=== PATIENT | male | born 1950 | race Hispanic/Latino ===

== ENCOUNTER 2019-08-21 18:13 | Inpatient (IN) | payer OTHER, MEDICARE ==
[~2019-08-21] VITALS: Ht 167.6 cm; Wt 108.0 kg
[~2019-08-21 18:13] MED LIST: CEFTIN PO; LEVAQUIN500 MG PO; LOSARTAN POTASS25 MG PO; MUCINEX DM ER1 EACH PO; NIFEDIPINE ER30 M1 PO; PROAIR HFA INH8.5 GM INH; WAL-ZYR D TABL1 EACH PO; ZITHROMAX500 MG PO
--- OUTSIDE RECORDS SUMMARY | 2019-08-21 18:15 | XMS REPORT ---
[facility] Address Unknown Phone Unavailable Care Team Providers Care Floral Clerk Name Role Phone RANDY GOODRICH Unavailable Unavailable Problems This patient has no known problems. Allergies, Adverse Reactions, Alerts This patient has no known allergies or adverse reactions. Medications This patient has no known medications. Results Test Description Test Time Test Comments Text Results Atomic Results Result Comments CHEST SINGLE (PORTABLE) [place] [address] Patient Name: CHARLES TONEY MR #: [id number] : 1950 Age/Sex: 67/M Req #: [id number] Adm Physician: RANDY GOODRICH MD Ordered by: RAUL LANGFORD MD Report #: [id number] Location: MED/SURG2 Room/Bed: [facility] Procedure: [id number] DX/CHEST SINGLE (PORTABLE) Exam Date: Exam Time: REPORT STATUS: Signed EXAM: CHEST SINGLE (PORTABLE), AP 1 view DATE: 11/06/2017 5:00 AM Time stamp on exam: 0552 hours INDICATION: Cough, congestion, fever COMPARISON: AP view of the chest November 05, 2017 FINDINGS: LINES/TUBES: None LUNGS: Consolidation medial aspect of the right lung base. Left lower lobe atelectasis versus consolidation. PLEURA: No effusions or pneumothorax. HEART AND MEDIASTINUM: Normal size and contour. BONES AND SOFT TISSUES: No acute findings. IMPRESSION: Stable findings of right lower lobe pneumonia. Signed by: Dr. Beverly Scott M.D. on 11/06/2017 6:42 AM Dictated By: BEVERLY SCOTT MD 1 Transcribed By: BERHANE on 11/06/17641 COPY TO: RAUL LANGFORD MD CHEST SINGLE (PORTABLE) [place] [address] Patient Name: CHARLES TONEY MR #: [id number] : 1950 Age/Sex: 67/M Req #: [id number] Adm Physician: Ordered by: JESSICA CARDOZA LADLE MECHANIC Report #: [id number] Location: ER Room/Bed: Procedure: [id number] DX/CHEST SINGLE (PORTABLE) Exam Date: 11/05/17 Exam Time: 2129 REPORT STATUS: Signed EXAM: CHEST SINGLE (PORTABLE), AP 1 view DATE: 11/05/2017 9:01 PM Time stamp on exam: 2127 hours INDICATION: Coughing COMPARISON: None FINDINGS: LINES/TUBES: None LUNGS: Consolidation in the medial aspect of the right lung base. PLEURA: No effusions or pneumothorax. HEART AND MEDIASTINUM: Normal size and contour. BONES AND SOFT TISSUES: No acute findings. IMPRESSION: Findings consistent with right lower lobe/middle lobe pneumonia. A follow-up PA and lateral view of the chest is recommended in 2 months after treatment to ensure resolution of findings. Signed by: Dr. Beverly Scott M.D. on 11/05/2017 9:56 PM Dictated By: BEVERLY SCOTT MD 55 Transcribed By: BERHANE on 11/05/17 [id number] COPY TO: JESSICA CARDOZA LADLE MECHANIC
[2019-08-21] MEDS ORDERED: OMEPRAZOLE40 MG PO (18:52)
[2019-08-21] MEDS ORDERED: METOLAZONE5 MG PO (18:52)
[2019-08-21] MEDS ORDERED: LISINOPRIL2.5 MG PO (18:52)
[2019-08-21] MEDS ORDERED: LASIX20 MG PO (18:52)
[2019-08-21] MEDS ORDERED: TETRACYCLINE H500 MG PO (18:52)
[2019-08-21] MEDS ORDERED: FLAGYL250 MG PO (18:52)
--- NOTE | 2019-08-21 18:53 | NUR ---
GIVEN SPECIMEN CUP BUT INSIST HE CANNOT VOID AT ALL.
--- NOTE | 2019-08-21 18:53 | NUR ---
SEE IN TRIAGE BY
[2019-08-21 18:55] LABS: BASOPHILS # (AUTO) 0.1 (0.0-0.1); BASOPHILS % 1.2 % (0.0-1.0); EOSINOPHILS # (AUTO) 0.2 (0.0-0.4); EOSINOPHILS % 2.9 % (0.0-6.0); HEMATOCRIT 29.2 % (38.2-49.6); HEMOGLOBIN 10.1 g/dL (14.0-18.0); LYMPHOCYTES # (AUTO) 0.8 (1.0-3.2); LYMPHOCYTES % 14.3 % (18.0-39.1); MEAN CORPUSCULAR HEMOGLOBIN 33.1 pg (28-32); MEAN CORPUSCULAR HGB CONC 34.6 g/dL (31-35); MEAN CORPUSCULAR VOLUME 95.7 fL (81-99); MONOCYTES # (AUTO) 0.4 (0.2-0.8); MONOCYTES % 6.6 % (4.4-11.3); NEUTROPHILS # (AUTO) 4.4 (2.1-6.9); NEUTROPHILS % 74.7 % (38.7-80.0); PLATELET COUNT 148 x10e3/uL (140-360); RED BLOOD COUNT 3.05 x10e6/uL (4.3-5.7); RED CELL DISTRIBUTION WIDTH 17.5 % (11.7-14.4)
[2019-08-21 19:04] LABS: INR 1.13; PARTIAL THROMBOPLASTIN TIME 37.5 seconds (23.8-35.5)
[2019-08-21 19:14] LABS: ALBUMIN 2.1 g/dL (3.5-5.0); ALBUMIN/GLOBULIN RATIO 0.5 (0.8-2.0); ANION GAP 17.7 mmol/L (8-16); CALCIUM 8.6 mg/dL (8.4-10.2); CREATININE, SERUM 6.65 mg/dL (0.72-1.25); POTASSIUM 4.7 mmol/L (3.5-5.1)
[2019-08-21 19:21] LABS: CREATINE KINASE MB 1.8 ng/mL (0-5.0)
--- NOTE | 2019-08-21 19:30 | NUR ---
16FR GRISSOM CATHETER INSERTED USING STERILE TECHNIQUE PER ORDERS. 50 CC DARK CLOUDY JAZMYNE URINE RETURN NOTED. MD INFORMED.
[2019-08-21] MEDS ORDERED: LIDOCAINE JELLY 2% 10ML URO-JET ONE (19:33)
[2019-08-21] MEDS ORDERED: LIDOCAINE JELLY 2% 10ML URO-JET TOP ONE (19:45)
[2019-08-21 19:56] LABS: CLARITY,URINE SL CLOUDY (CLEAR); COLOR,URINE AMBER (YELLOW); LEUKOCYTE ESTERASE ,URINE TRACE (NEGATIVE)
[2019-08-21 19:57] LABS: BILIRUBIN,URINE SMALL (NEGATIVE); KETONES,URINE NEGATIVE (NEGATIVE); NITRITE,URINE NEGATIVE (NEGATIVE); PROTEIN,URINE DIPSTICK TRACE (NEGATIVE); URINE UROBILINOGEN 0.2 mg/dL (0.2 - 1)
[2019-08-21 20:05] LABS: WBC,URINE (MAN) 0-5 /HPF (0-5)
[2019-08-21 20:06] LABS: AMORPHOUS SEDIMENT,URINE MODERATE (FEW); BACTERIA,URINE FEW /HPF
--- NOTE | 2019-08-21 20:33 | Diagnostic Imaging Report ---
Examination: Single AP view of the chest. COMPARISON: None. INDICATION: abdominal pain DISCUSSION: Lines/tubes: None. Lungs: Low lung volume. No pneumonia. Pleura: No pleural effusion or pneumothorax. Heart and mediastinum: The heart and the mediastinum are unremarkable. Bones and soft tissues: No acute bony abnormalities. IMPRESSION: 1. No acute cardiopulmonary abnormalities. Signed by: Dr. Carlos A Cano M.D. on 08/21/2019 8:29 PM
--- NOTE | 2019-08-21 20:51 | Diagnostic Imaging Report ---
EXAMINATION: CT of the abdomen and pelvis without contrast. TECHNIQUE: Helical CT images of the abdomen and pelvis were performed from the lung bases to the lesser trochanters. No intravenous contrast was given per renal stone protocol. Coronal and sagittal reformatted images were obtained. COMPARISON: None. CLINICAL HISTORY:abdominal pain DISCUSSION: ABSENCE OF INTRAVENOUS CONTRAST DECREASES SENSITIVITY FOR DETECTION OF FOCAL LESIONS AND VASCULAR PATHOLOGY. ABDOMEN/PELVIS: LOWER THORAX: Unremarkable. HEPATOBILIARY:Enlargement of the left hepatic lobe and caudate with nodular contour. SPLEEN: No splenomegaly. PANCREAS: No focal masses or ductal dilatation. ADRENALS: No adrenal nodules. KIDNEYS/URETERS: No hydronephrosis. Left renal calculi, largest 1 cm PELVIC ORGANS/BLADDER: Bruce catheter within the prostate. PERITONEUM/RETROPERITONEUM: Large volume ascites LYMPH NODES: No intra-abdominal,retroperitoneal, pelvic or inguinal lymphadenopathy. VESSELS: Unremarkable. GI TRACT: Scattered colonic diverticulosis. No inflammatory change. BONES AND SOFT TISSUES: Multilevel degenerative disc disease. IMPRESSION: Cirrhotic liver with large volume ascites Colonic diverticulosis without inflammatory change. Nonobstructing left renal calculi. Signed by: Dr. Carlos A Cano M.D. on 08/21/2019 8:48 PM
[2019-08-21] MEDS ORDERED: SODIUM CHLORIDE FLUSH 10 ML SYR INJ PRN (21:30)
[2019-08-21] MEDS ORDERED: ALBUTEROL/IPRATROPIUM 3 ML NEB NEB PRN (21:45)
[2019-08-21 22:45] VITALS: BP 129/61
--- NOTE | 2019-08-21 22:45 | NUR ---
Patient received to room 293 via stretcher from the er. vss. no c/o pain noted. patient slightly sob on transfer from stretcher to bed. 02/2l/nc placed on patient for comfort. abd lrg, firm with no c/o pain and 3+ bilateral edema x 2 weeks. admit assessment/history complete. bed low, sr up x 3 and call gilbert placed within reach. patient instructed on fluid restriction 1 liter daily. patient verbalizes understanding of this. patient instructed to call for assistance when needed.
[2019-08-22] VITALS (8 sets, daily range): BP systolic 104–132; BP diastolic 52–66
[2019-08-22 06:24] LABS: BASOPHILS % 0.5 % (0.0-1.0); EOSINOPHILS # (AUTO) 0.2 (0.0-0.4); EOSINOPHILS % 3.4 % (0.0-6.0); HEMATOCRIT 27.4 % (38.2-49.6); HEMOGLOBIN 9.4 g/dL (14.0-18.0); LYMPHOCYTES % 18.4 % (18.0-39.1); MEAN CORPUSCULAR HEMOGLOBIN 32.6 pg (28-32); MEAN CORPUSCULAR HGB CONC 34.3 g/dL (31-35); MEAN CORPUSCULAR VOLUME 95.1 fL (81-99); MONOCYTES # (AUTO) 0.4 (0.2-0.8); NEUTROPHILS # (AUTO) 3.9 (2.1-6.9); NEUTROPHILS % 70.2 % (38.7-80.0); PLATELET COUNT 139 x10e3/uL (140-360); RED BLOOD COUNT 2.88 x10e6/uL (4.3-5.7); RED CELL DISTRIBUTION WIDTH 17.8 % (11.7-14.4)
[2019-08-22 06:46] LABS: ALBUMIN 1.9 g/dL (3.5-5.0); ALBUMIN/GLOBULIN RATIO 0.5 (0.8-2.0); ANION GAP 16.4 mmol/L (8-16); CALCIUM 8.3 mg/dL (8.4-10.2); CREATININE, SERUM 6.76 mg/dL (0.72-1.25); POTASSIUM 5.4 mmol/L (3.5-5.1)
--- NOTE | 2019-08-22 07:00 | NUR ---
BEDSIDE SHIFT REPORT RECEIVED FROM THE WEAVING SUPERVISOR RN. EDUCATED PT ABOUT FALL PRECAUTIONS AND FLUID RESTRICTIONS. PT VERBALIZED UNDERSTANDING. PT REFUSED BED ALARM. PT DENIES NEEDS AT THIS TIME.
[2019-08-22] MEDS: ONDANSETRON HCL INJ 2MG/ML 2ML 2 MG/ML VIAL IV PRN (08:03)
--- NOTE | 2019-08-22 10:15 | NUR ---
DR. SILVERIO AT BEDSIDE. NEW ORDER FOR PARACENTESIS TODAY.
--- NOTE | 2019-08-22 11:20 | NUR ---
INFORMED CONSENT SIGNED FOR PARACENTESIS. FAMILY AT BEDSIDE. PT DENIED FURTHER NEEDS.
--- NOTE | 2019-08-22 11:35 | NUR ---
PER RADIOLOGY PT NEEDS TO BE ON NPO FOR 4 HOURS. PT LAST MEAL WAS AT 8AM BREAK FAST. PT IS AWARE OF NPO STATUS.
--- NOTE | 2019-08-22 12:00 | NUR ---
PT OFF UNIT FOR PROCEDURE WITH PECAN GATHERER. FAMILY AT BEDSIDE.
--- NOTE | 2019-08-22 12:55 | NUR ---
PT BACK TO UNIT AFTER PROCEDURE. 7850 ML FLUID REMOVED. PT DENIES NEEDS AT THIS TIME.
--- NOTE | 2019-08-22 13:00 | NUR ---
DR. POOLE AT BEDSIDE.
[2019-08-22] MEDS ORDERED: ALBUMIN 25% 12.5GM 50ML 50 ML IV ONE ×3 (13:13→13:16)
[2019-08-22] MEDS ORDERED: ALBUMIN 25% 25GM 100ML 0.25 GM/ML BTL IV ONE (13:15)
--- NOTE | 2019-08-22 13:23 | Diagnostic Imaging Report ---
EXAM: Ultrasound-guided paracentesis DATE: 08/22/2019 12:00 PM INDICATION: Ascites COMPARISON: None PROCEDURES PERFORMED: Ultrasound guided paracentesis Ultrasound images archived in PACS. Anesthesia: Local, 1% lidocaine Devices: 5-Croatian Yueh centesis needle PROCEDURE REPORT: After informed consent was obtained, ultrasound was utilized to identify the largest pocket of ascitic fluid. A safe entry route in the right lower quadrant was identified and the overlying skin was prepped and draped in usual sterile fashion. Lidocaine1% was used for local anesthesia. Under ultrasound guidance, a 5 Fr centesis needle was advanced into the ascites in the right lower quadrant of the abdomen. A total of 7,850 cc were aspirated without complication. The catheter was removed and a dressing applied to the skin. Order was made for the patient to receive 50 g of albumin IV following the procedure. Complications: None Blood loss: Minimal, less than 1cc Samples: Sent to the laboratory for analysis Patient disposition: Stable IMPRESSION: Uncomplicated ultrasound guided paracentesis with removal of 7,850 cc's of bloody ascites. Signed by: Dr. Wyatt Rodriguez DO on 08/22/2019 1:20 PM
[2019-08-22] MEDS ORDERED: SOD POLYSTYRENE SULFONATE SUSP 15 GM/60 ML BTL PO NR (16:15)
[2019-08-22] MEDS ORDERED: FUROSEMIDE INJ 10 MG/ML 2 ML VIAL IV SCH (17:00)
[2019-08-22] MEDS ORDERED: FUROSEMIDE 20 MG TAB PO SCH (17:00)
[2019-08-22] MEDS ORDERED: MORPHINE SULFATE 2 MG/ML SYR 1ML IV PRN (17:30)
--- NOTE | 2019-08-22 17:40 | Consultation ---
DATE OF CONSULTATION: 08/22/2019 HISTORY OF PRESENT ILLNESS: A 69-year-old, who apparently was presented to the hospital because of "not feeling good." The patient was found to be jaundiced with bilirubin as high as 9.3 on admission. He had the CAT scan, which showed evidence of cirrhosis with large volume ascites along with diverticulosis. He also has acute renal failure with a BUN and creatinine of 8.8 and 6.65. He denies any history of alcohol abuse or hepatitis in the past. PAST MEDICAL HISTORY: His medical problem is unremarkable. ALLERGIES: NONE. SOCIAL HISTORY: No alcohol use. FAMILY HISTORY: Significant for diabetes as well as hepatitis. REVIEW OF SYSTEMS: Denies any chest pain or shortness of breath. Denies any dysphagia or odynophagia. Denies any dysuria, hematuria, or any kind of syncopal episode. PHYSICAL EXAMINATION: GENERAL: Awake, alert, appears to be stable. VITAL SIGNS: Afebrile currently. HEAD, EYES, EARS, NOSE, AND THROAT: Normocephalic, atraumatic. Sclerae are icteric. NECK: Supple. HEART: Regular. ABDOMEN: Soft, distended with ascites that is nontender. EXTREMITIES: No cyanosis. No clubbing. LABORATORY VALUES: As of this morning, BUN of 87, creatinine of 6.76, bilirubin of 8.9, AST of 179, ALT of 65, and the WBC of 5.54, hemoglobin of 9.4, and a platelet count of 139. CAT scan as I mentioned before. IMPRESSION: 1. Cirrhosis with large amount of ascites. It was unclear at this point. 2. Acute renal failure. RECOMMENDATION: We need to get a paracentesis done. Also labs to rule out any kind of further disease that may be affecting the liver. Anil lOivia MD DHD/MODL /[id number] cc: Irene Santiago MD
--- NOTE | 2019-08-22 19:00 | NUR ---
BEDSIDE SHIFT REPORT GIVEN TO THE PROGRAM FACILITATOR RN. PT FAMILY AT BEDSIDE. PT DENIED FURTHER NEEDS.
--- NOTE | 2019-08-22 19:12 | NUR ---
Report received and walking rounds complete. Pt A&O and resting in bed and no apparent distress. All safety measures ensured and pt call gilbert near.
[2019-08-22 21:19] LABS: BODY FLUID APPEARANCE TURBID; BODY FLUID COLOR RED; BODY FLUID TYPE PERITONEAL
[2019-08-22 22:14] LABS: RBC,BODY FLUID 102960 cells/uL; WBC,BODY FLUID 17 cells/uL
[2019-08-22 22:25] LABS: LYMPHOCYTES,BODY FLUID 34 %; MONO/MACROPHG,BODY FLUID 29 %; NEUTROPHILS,BODY FLUID 37 %
--- NOTE | 2019-08-22 23:30 | History and Physical ---
PRIMARY CARE PHYSICIAN: Dr. Román George with [facility]. CHIEF COMPLAINT: Abdominal distention, general weakness and lower extremity edema. HISTORY OF PRESENT ILLNESS: This is a 69-year-old male who with a past medical history of hypertension, asthma, GERD, presented to the ER with complaints of 2-3 weeks of poor appetite, increased distention of his stomach and low urine output. He reports feeling nauseous and poor appetite. He denies any abdominal pain, chest pain, shortness of breath, fever, chills, hematemesis, or dysuria. He reports going to his PCP two weeks ago for a similar problem and at that time, they alisha some blood work and was supposed to follow up in the office next week, but the symptoms have been worsening, so he presented to the ER for further workup. PAST MEDICAL HISTORY: 1. Hypertension. 2. Asthma. 3. GERD. PAST SURGICAL HISTORY: He reports right ear surgery. FAMILY MEDICAL HISTORY: Mother had diabetes and leukemia. Father had a heart attack. SOCIAL HISTORY: He denies any tobacco, alcohol, or illicit drug use. He lives with his . REVIEW OF SYSTEMS: GENERAL: He appears in no distress. HEENT: Jaundice in eye. No head trauma. LUNGS: Clear to auscultation. CARDIOVASCULAR: No chest pain or palpitations. GI: Reports abdominal distention and nausea. NEUROLOGIC: Alert and oriented. MUSCULOSKELETAL: Lower extremity edema, pitting edema. SKIN: Dry and intact. PHYSICAL EXAMINATION: VITAL SIGNS: Temperature 96.3, pulse is 73, respirations 18, blood pressure 108/52, O2 99% on 2 L of O2. LABORATORY DATA: WBC 5.54, hemoglobin 9.4, hematocrit 27.4, platelets are 139. Sodium 132, potassium 4.7, then went up to 5.4, BUN 83, creatinine 6.65, AST 198, ALT 73, troponin negative, and lipase 90. TSH 4.762. CK 51. GENERAL: He appears in no acute distress. HEENT: Conjunctiva is jaundiced. Normocephalic, atraumatic. LUNGS: Clear to auscultation. CARDIOVASCULAR: Regular rate and rhythm. GI: Mild tenderness and distention. Active bowel sounds. NEURO: Alert, awake and oriented x3. MUSCULOSKELETAL: Moves all extremities and 3+ pedal pitting edema noted in the lower extremities. SKIN: Dry and intact. IMAGING: Chest x-ray showed no acute cardiopulmonary abnormalities. Abdominal and pelvic CT showed cirrhotic liver with large volume ascites, colonic diverticulosis without inflammatory changes and nonobstructive left renal stone. IMPRESSION AND PLAN: 1. Cirrhotic liver with large ascites. IR was consulted for a paracentesis. 2. Acute kidney failure, unknown history of kidney disease. Creatinine is 6.76. We will resume Lasix and consult Nephrology for further recommendations. 3. Hyponatremia. Sodium is 132. We will monitor closely, asymptomatic. 4. Hyperkalemia, 5.4. We will repeat K levels. 5. Hypertension, now stable. We will hold off on blood pressure medications for now. 6. Gastroesophageal reflux disease. We will continue Pepcid. 7. Asthma. We will give albuterol as needed and currently does not have respiratory distress. 8. Anemia of chronic disease. Hemoglobin is 9.4. We will monitor for now and consider blood transfusion if hemoglobin is less than 7. 9. Deep venous thrombosis prophylaxis. We will use SCDs for now due to anemia and possible gastrointestinal bleed. Dictated by GIL Mays Irene Santiago MD MY/MODL /[id number] The patient was seen and examined on 08/22/2019, his sister recently from cirrhosis. Agree with the findings and plan as documented by GIL Reina. MTDD
[2019-08-23] VITALS (7 sets, daily range): BP systolic 107–130; BP diastolic 55–69
[2019-08-23 06:38] LABS: BASOPHILS % 0.6 % (0.0-1.0); EOSINOPHILS # (AUTO) 0.1 (0.0-0.4); EOSINOPHILS % 1.6 % (0.0-6.0); HEMATOCRIT 24.7 % (38.2-49.6); HEMOGLOBIN 8.7 g/dL (14.0-18.0); LYMPHOCYTES # (AUTO) 0.5 (1.0-3.2); LYMPHOCYTES % 9.2 % (18.0-39.1); MEAN CORPUSCULAR HEMOGLOBIN 33.5 pg (28-32); MEAN CORPUSCULAR HGB CONC 35.2 g/dL (31-35); MONOCYTES # (AUTO) 0.4 (0.2-0.8); MONOCYTES % 7.3 % (4.4-11.3); NEUTROPHILS # (AUTO) 3.9 (2.1-6.9); NEUTROPHILS % 80.5 % (38.7-80.0); PLATELET COUNT 115 x10e3/uL (140-360); RED CELL DISTRIBUTION WIDTH 17.8 % (11.7-14.4)
[2019-08-23 07:13] LABS: ALBUMIN 2.3 g/dL (3.5-5.0); ALBUMIN/GLOBULIN RATIO 0.7 (0.8-2.0); CALCIUM 8.4 mg/dL (8.4-10.2); CREATININE, SERUM 7.1 mg/dL (0.72-1.25)
--- NOTE | 2019-08-23 07:15 | NUR ---
received am report from nurse and morning rounds done. pt is sleeping, no s/s of distress. call light within reach and side rails are up. family is at the bedside
--- NOTE | 2019-08-23 07:26 | NUR ---
Bedside report and walking rounds complete with day shift RN.
[2019-08-23 08:12] LABS: LYMPHOCYTES % (MANUAL) 9 % (19-48); MONOCYTES % (MANUAL) 6 % (3.4-9.0)
[2019-08-23 08:13] LABS: BAND NEUTROPHILS % (MANUAL) 5 %; EOSINOPHILS % (MANUAL) 1 % (0-7); NEUTROPHILS % (MANUAL) 79 % (40-74)
[2019-08-23 08:14] LABS: PLATELET ESTIMATE SLIGHTLY DECREASED; PLATELET MORPHOLOGY COMMENT NORMAL
--- NOTE | 2019-08-23 18:01 | Progress Note ---
DATE: 08/23/2019 CHIEF COMPLAINT: Abdominal distention, generalized weakness, and bilateral lower extremity edema. SUBJECTIVE: Seen in room with family at bedside, he denies any abdominal pain, shortness of breath, chest pain, fever, chills, nausea, vomiting, or dysuria. Bruce is in place, draining tamar color urine. He reports poor appetite. OBJECTIVE: VITAL SIGNS: Temperature 95.9, pulse is 73, respirations 18, blood pressure 111/55, pulse ox 100% on 2 L of O2 via nasal cannula. GENERAL: No acute distress. HEENT: Normocephalic and atraumatic. Sclerae are jaundiced. NECK: Supple and midline. LUNGS: Clear to auscultation. CARDIOVASCULAR: Regular rate and rhythm. GI: Soft and nontender. Active bowel sounds. Mild distention noted. NEUROLOGIC: Alert, awake, and oriented x3. MUSCULOSKELETAL: Moves all extremities. Pitting edema in bilateral lower extremities noted. SKIN: Dry and intact. LABORATORY DATA: WBC 4.9, RBC 2.60, hemoglobin 8.7, hematocrit 24.7, platelets 115. Sodium 136, potassium 5.0, carbon dioxide 20, BUN 97, creatinine is 7.10, estimated GFR is 8, AST 186, ALT is 61, alkaline phosphatase is 154. Alpha-fetoprotein is pending. INR is 1.13, PT 15. Hepatitis panel still pending. Urine culture negative so far. IMPRESSION: 1. Cirrhosis with large ascites status post paracentesis, removed 7850 mL via a shunt. 2. Acute kidney failure, denies history of chronic kidney disease. Creatinine is up to 7.1, and Nephrology on the case. We will defer fluid management and kidney function to Nephrology. 3. Hypertension, now stable. We will hold off on nephrotoxic medications. 4. Anemia of chronic disease, hemoglobin is 8.4. We will continue to monitor and transfuse as needed. 5. History of gastroesophageal reflux disease. Continue Pepcid. 6. History of asthma, on albuterol as needed. 7. DVT prophylaxis, no chemical anticoagulation due to anemia. PLAN: We will continue current treatment. Repeat labs in a.m. Further recommendation per GI and Nephrology. Dictated by Veronica Reina, GIL Irene Santiago MD MY/MODL /[id number] Seen and examined, updated family at the bedside in details. Agree with the findings and plan as documented by GIL Reina. [facility]
--- NOTE | 2019-08-23 19:36 | NUR ---
PT IS RESTING IN BED. RESPIRATION IS EVEN AND UNLABORED, NO DISTRESS NOTED. BED IN THE LOWEST POSITION, LOCKED, BED ALARM ON, AND CALL LIGHT WITHIN REACH. WILL CONTINUE TO MONITOR.
[2019-08-24] VITALS (8 sets, daily range): BP systolic 112–120; BP diastolic 56–58
[2019-08-24 06:13] LABS: BASOPHILS % 0.8 % (0.0-1.0); EOSINOPHILS # (AUTO) 0.2 (0.0-0.4); EOSINOPHILS % 3.3 % (0.0-6.0); HEMATOCRIT 24.6 % (38.2-49.6); HEMOGLOBIN 8.4 g/dL (14.0-18.0); LYMPHOCYTES # (AUTO) 0.7 (1.0-3.2); LYMPHOCYTES % 13.7 % (18.0-39.1); MEAN CORPUSCULAR HEMOGLOBIN 32.8 pg (28-32); MEAN CORPUSCULAR HGB CONC 34.1 g/dL (31-35); MEAN CORPUSCULAR VOLUME 96.1 fL (81-99); MONOCYTES # (AUTO) 0.3 (0.2-0.8); MONOCYTES % 6.7 % (4.4-11.3); NEUTROPHILS # (AUTO) 3.8 (2.1-6.9); NEUTROPHILS % 75.1 % (38.7-80.0); PLATELET COUNT 105 x10e3/uL (140-360); RED BLOOD COUNT 2.56 x10e6/uL (4.3-5.7); RED CELL DISTRIBUTION WIDTH 17.7 % (11.7-14.4)
[2019-08-24 06:33] LABS: INR 1.28; PROTHROMBIN TIME 16.6 seconds (11.9-14.5)
[2019-08-24 06:42] LABS: ALBUMIN 2.1 g/dL (3.5-5.0); ANION GAP 16.3 mmol/L (8-16); BILIRUBIN,DIRECT 6.9 mg/dL (0.0-0.5); CALCIUM 8.3 mg/dL (8.4-10.2); CREATININE, SERUM 7.36 mg/dL (0.72-1.25); POTASSIUM 4.3 mmol/L (3.5-5.1)
[2019-08-24] MEDS ORDERED: BUMETANIDE 1 MG TAB PO ONE ×2 (14:00→18:00)
[2019-08-24] MEDS ORDERED: ALBUMIN 5% 0.05 GM/ML BTL IV ONE (14:00)
[2019-08-24] MEDS ORDERED: LIDOCAINE HCL 1% LOCAL INJ 20 ML VIAL ONE (14:23)
--- NOTE | 2019-08-24 14:53 | Diagnostic Imaging Report ---
EXAM: Renal Ultrasound INDICATION: ^ruba COMPARISON: None TECHNIQUE: Transverse and longitudinal images of the kidneys and bladder were obtained. FINDINGS: Right Kidney: Length: 11.3 cm Appearance: Normal echogenicity. Collecting system: No hydronephrosis Stones: None Cyst/Mass: None Left Kidney: Length: 11.2 cm Appearance: Normal echogenicity. Collecting system: No hydronephrosis Stones: 6 mm mid pole echogenic focus with posterior acoustic shadowing, consistent with nonobstructive calculus. Cyst/Mass: None Bladder: Decompressed bladder with Bruce in place. IMPRESSION: Left mid pole 6 mm nonobstructive calculus. No hydronephrosis. Decompressed bladder with Bruce in place. Signed by: Dori Barry MD on 08/24/2019 2:50 PM
--- NOTE | 2019-08-24 15:41 | NUR ---
ATTEMPTED TO PREFORM DPA PT NOT IN ROOM, GONE TO PROCEDURE.
--- NOTE | 2019-08-24 16:19 | Diagnostic Imaging Report ---
PROCEDURE: Non-tunneled dialysis catheter placement Procedural Personnel Attending physician(s): Dori Barry MD Fellow physician(s): None Resident physician(s): None Advanced practice provider(s): None Pre-procedure diagnosis: Acute kidney injury Post-procedure diagnosis: Same Indication: Performance of hemodialysis Additional clinical history: None Complications: No immediate complications. IMPRESSION: Insertion of right-sided non-tunneled triple lumen temporary dialysis catheter, with tip in the expected location of the cavoatrial junction. Plan: The catheter may be used immediately. PROCEDURE SUMMARY: - Venous access with ultrasound guidance - Non-tunneled central venous catheter insertion with fluoroscopic guidance - Additional procedure(s): None PROCEDURE DETAILS: Pre-procedure Consent: Informed consent for the procedure including risks, benefits and alternatives was obtained and time-out was performed prior to the procedure. Preparation (MIPS): The site was prepared and draped using all elements of maximal sterile barrier technique including sterile gloves, sterile gown, cap, mask, large sterile sheet, sterile ultrasound probe cover, hand hygiene and cutaneous antisepsis with 2% chlorhexidine. Medical reason for site preparation exception (MIPS): Not applicable Anesthesia/sedation Level of anesthesia/sedation: No sedation Access Local anesthesia was administered. The vessel was sonographically evaluated and determined to be patent. Real time ultrasound was used to visualize needle entry into the vessel and a permanent image was stored. Vein accessed: Internal jugular vein Access technique: 19 gauge access needle Catheter placement The access site was dilated and the catheter was placed into the vein over a wire under fluoroscopic guidance. The catheter tip location was fluoroscopically verified and a permanent image was stored.. A sterile dressing was applied. Catheter placed: Bard trialysis Catheter size (Salvadorean): 13 Catheter length (cm): 15 Catheter flush: Normal saline Catheter securement technique: Non-absorbable suture Contrast Contrast agent: None Radiation Dose Fluoroscopy time (minutes): 0.1 Reference air kerma (mGy): 1.44 Additional Details Additional description of procedure: None Equipment details: None Specimens removed: None Estimated blood loss (mL): Less than 10 Standardized report: [id number] Attestation Signer name: Dori Barry MD I attest that I was present for the entire procedure. I reviewed the stored images and agree with the report as written. Signed by: Dori Barry MD on 08/24/2019 4:16 PM
[2019-08-24] MEDS: FAMOTIDINE 20 MG TAB PO SCH (17:30)
--- NOTE | 2019-08-24 18:10 | Progress Note ---
DATE: 08/24/2019 CHIEF COMPLAINT: Generalized weakness and edema. SUBJECTIVE: Seen post dialysis catheter placement this afternoon. He denies any chest pain, shortness of breath, fever, chills, nausea, or vomiting. OBJECTIVE: VITAL SIGNS: Temperature is 97.4, pulse is 74, blood pressure is 117/57, and pulse ox is 99% on room air. GENERAL: No acute distress. HEENT: Normocephalic and atraumatic. No vision loss. NECK: Supple and midline. LUNGS: Clear to auscultation. CARDIOVASCULAR: Regular rate and rhythm. GI: Soft, distended, and nontender. NEUROLOGICAL: Alert, awake, and oriented x3. MUSCULOSKELETAL: Active ROM. Pitting edema on bilateral lower extremities. TONNY hose in place. SKIN: Grossly intact. No rash noted. PSYCH: Normal affect and mood. LABORATORY DATA: WBC is 5.1, hemoglobin is 8.4, hematocrit is 24.6, and platelet is 105. Sodium is 134, potassium is 4.3, CO2 is 22, BUN is 107, creatinine is 7.36, and estimated GFR is 7. A total bilirubin is 9.3. AST is 191, ALT is 63. INR is 1.28. PT is 16.6. EJ is still pending and hepatitis panel also pending. IMAGING: Renal ultrasound showed left mid pole 6 mm nonobstructive calculus. No hydronephrosis is noted. IMPRESSION AND PLAN: 1. Cirrhosis with a large ascites, status post paracentesis. Abdomen is again getting distended a little more. 2. Acute kidney failure. His last creatinine at his PCPs office within normal limits. Right jugular dialysis catheter was placed. Nephrology has been consulted and plans to initiate dialysis. 3. Hypertension, now stable. We will continue to monitor closely. 4. Anemia of chronic disease. Hemoglobin is 8.3. We will continue to monitor. No signs of bleeding noted. 5. Thrombocytopenia. No signs of bleeding noted. We will continue to monitor, likely due to cirrhosis. 6. History of gastroesophageal reflux disease. Continue Pepcid. 7. History of asthma. We will continue albuterol as needed. 8. Deep venous thrombosis prophylaxis. No chemical anticoagulation due to anemia. PLAN: We will continue current treatment and Nephrology plans on initiating dialysis soon. We will repeat labs in the a.m. Further recommendations to follow. Dictated by GIL Mays MD BELKIS Wilkins/KELLL /[id number] Seen and examined. Agree with the findings and plan as documented by GIL Reina. [facility]
[2019-08-25] VITALS (7 sets, daily range): BP systolic 110–124; BP diastolic 57–65
[2019-08-25 06:08] LABS: ALBUMIN 2.1 g/dL (3.5-5.0); ALBUMIN/GLOBULIN RATIO 0.6 (0.8-2.0); CALCIUM 8.2 mg/dL (8.4-10.2); CREATININE, SERUM 7.65 mg/dL (0.72-1.25)
[2019-08-25 06:41] LABS: CREATININE,URINE RANDOM 72.35 mg/dL (63-166); TOTAL PROTEIN, URINE 44.5 mg/dL (1-14)
[2019-08-25] MEDS: FAMOTIDINE 20 MG TAB PO SCH ×2 (10:57→17:55)
[2019-08-25] MEDS ORDERED: SODIUM CHLORIDE 0.9% 1000ML 2,000 ML ONE (13:45)
[2019-08-25] MEDS ORDERED: SODIUM CHLORIDE 0.9% 1000ML 2,000 ML IV PRN (14:00)
[2019-08-25] MEDS ORDERED: HEPARIN SOD (PORCINE) 1000 UNIT/ML SDV IV PRN (14:00)
[2019-08-25] MEDS ORDERED: ALBUMIN 25% 12.5GM 0.25 GM/ML BTL IV PRN (14:45)
[2019-08-25] MEDS ORDERED: MANNITOL 25% 12.5GM/50 ML VIAL IV PRN (14:45)
--- NOTE | 2019-08-25 16:05 | NUR ---
SPOKE WITH PT ABOUT DIALYSIS CHAIR, HE STATES HE LIVES CLOSEST TO [facility], HE SIGNED CHOICE FILED IN CHART. HE STATES HE PREFERS M, W F MORNING TIME IF AVAILABLE. PT CURRENTLY ON FIRST DIALYSIS, WILL FAX TO ADMISSION IN MORNING WHEN NOTES ARE AVAILABLE.
--- NOTE | 2019-08-25 19:06 | Progress Note ---
DATE: 08/25/2019 CHIEF COMPLAINT: Generalized weakness, bilateral lower extremity edema, and ascites. SUBJECTIVE: Seen in bed while HD is in progress. He denies any fever, chills, nausea, vomiting, chest pain, and shortness of breath. Bruce catheter in place and draining dark brown urine. No further complaint. OBJECTIVE: VITAL SIGNS: Temperature 97, pulse is 68, respirations 20, blood pressure 120/57, and pulse ox 99% on 2 L of oxygen. GENERAL: No acute distress. Conversant. HEENT: Normocephalic and atraumatic. NECK: Supple and midline. LUNGS: With decreased breath sounds. CARDIOVASCULAR: Regular rate and rhythm. No murmurs. GASTROINTESTINAL: Soft and nontender. NEUROLOGICAL: Alert, awake, and oriented x3. MUSCULOSKELETAL: Active ROM with bilateral lower extremity edema. SKIN: Grossly intact. Jaundiced. LABORATORY DATA: Sodium is 132, potassium is 4.0, BUN is 121, and creatinine is 7.65. Estimated GFR is 7. AST is 196 and ALT is 64. Alkaline phosphate is 177. Hepatitis panel was negative. ASSESSMENT AND PLAN: 1. Cirrhosis with large ascites status post paracentesis per IR. Hepatitis panel is negative. 2. Acute kidney failure. Creatinine is 7.65 today. Dialysis catheter has been placed and initiated on dialysis per Nephrology. See on setting outpatient dialysis. 3. Hypertension. We will continue meds. 4. Anemia of chronic disease. Hemoglobin stable at 8.3 to 8.4. We will continue to monitor and transfuse if hemoglobin is less than 7. 5. Thrombocytopenia. No signs of bleeding likely due to cirrhosis. 6. Gastroesophageal reflux disease. Continue Pepcid. 7. History of asthma, stable, albuterol as needed. 8. Deep vein thrombosis prophylaxis. No chemical anticoagulation due to anemia. Dictated by GIL Mays Irene Santiago MD MY/MODL /[id number]
[2019-08-25] MEDS: ONDANSETRON HCL INJ 2MG/ML 2ML 2 MG/ML VIAL IV PRN (23:36)
[2019-08-26] VITALS (8 sets, daily range): BP systolic 111–120; BP diastolic 56–68
[2019-08-26 05:49] LABS: BASOPHILS # (AUTO) 0.1 (0.0-0.1); BASOPHILS % 0.8 % (0.0-1.0); EOSINOPHILS # (AUTO) 0.3 (0.0-0.4); EOSINOPHILS % 5.1 % (0.0-6.0); HEMATOCRIT 25.6 % (38.2-49.6); HEMOGLOBIN 8.9 g/dL (14.0-18.0); LYMPHOCYTES # (AUTO) 1.3 (1.0-3.2); LYMPHOCYTES % 21.3 % (18.0-39.1); MEAN CORPUSCULAR HEMOGLOBIN 32.7 pg (28-32); MEAN CORPUSCULAR HGB CONC 34.8 g/dL (31-35); MEAN CORPUSCULAR VOLUME 94.1 fL (81-99); MONOCYTES # (AUTO) 0.4 (0.2-0.8); NEUTROPHILS % 66.5 % (38.7-80.0); PLATELET COUNT 111 x10e3/uL (140-360); RED BLOOD COUNT 2.72 x10e6/uL (4.3-5.7); RED CELL DISTRIBUTION WIDTH 18.5 % (11.7-14.4)
[2019-08-26 06:15] LABS: ALBUMIN 2.1 g/dL (3.5-5.0); ALBUMIN/GLOBULIN RATIO 0.6 (0.8-2.0); ANION GAP 16.1 mmol/L (8-16); CALCIUM 8.5 mg/dL (8.4-10.2); CREATININE, SERUM 6.72 mg/dL (0.72-1.25); POTASSIUM 4.1 mmol/L (3.5-5.1)
--- NOTE | 2019-08-26 07:18 | NUR ---
Received patient, lying in bed with eyes open.Family member at bedside. Respiration even and unlabored without SOB.Doc light in reach.
--- NOTE | 2019-08-26 08:25 | NUR ---
Patient's potassium level is 2.7. Notified Dr. Loredo. Orders given to give one time dose of potassium phosphate 40 ml IVPB, Mag sulfate 2 g IV and Amiloride 10 mg, po stat.
[2019-08-26] MEDS: FAMOTIDINE 20 MG TAB PO SCH ×2 (09:11→16:46)
--- NOTE | 2019-08-26 14:00 | NUR ---
Patient is currently on hemodialysis at this time. Respiration even and unlabored. No acute distress noted. Denies pain. Call light in reach.
--- NOTE | 2019-08-26 16:25 | NUR ---
Nutrition Screen Note RD Recommendation for Physician: -Continue current diet as ordered Plan of Care: RD following, monitoring for tolerance and adequacy, diet education Nutrition reason for involvement: LOS, ESRD on HD (new) Primary Diagnose(s): cirrhosis with large ascites, ESRD PMH: 1. Hypertension. 2. Asthma. 3. GERD. Ht: 66in Wt: 238lb BMI: 38.4kg/m2 IBW: 142lb +/- 10% RD Assessment: (08/26/19) Chart reviewed. Labs and meds reviewed. 69yo M, who was admitted for cirrhosis and acute renal failure. Pt was getting set up for outpatient HD. Pt had paracentesis with removal of 7,850 cc's of bloody ascites drawn on 08/22. Visited pt in the room. His appetite has improved. PCT recorded 50-100% meal intake. No complain of nausea or vomiting. LBM 08/25. Pt has no teeth and need his food to be chopped - notified kitchen. No swallowing difficulty reported. RD provided information on renal diet; pt verbalized understanding. All questions have been answered. Current Diet: renal diet Malnutrition Evaluation (08/26/2019) The patient does not meet criteria for a specified degree of malnutrition at this time. Will re-evaluate at follow-up as appropriate. Energy intake: Adequate PO intake reported Weight loss: Unable to determine due to ascites Fat loss: no loss Muscle loss: no loss Supporting Evidence: Fluid accumulation: Severe ascites Functional Status: no changes Diet Education Needs Assessment: Diet education indicated, pt and were agreeable. Learner(s): pt and Time spent: 25minutes Barriers: No barriers identified. Cultural/Language Modifications: Pt speaks Pashto. Readiness: Pt eager to learn. Method: Handout, explanation Topics: Renal diet (sodium, potassium, phosphorus) Understanding/Compliance: Expect good understanding/compliance from pt. Will benefit from reinforcement. All questions have been answered. Nutrition Care Level: low Signed: Dorita Ac, , RD, LD
--- NOTE | 2019-08-26 17:32 | Progress Note ---
DATE: 08/26/2019 CHIEF COMPLAINT: Generalized weakness, ascites, and bilateral lower extremities edema. SUBJECTIVE: Seen while HD is in progress. Denies any chest pain, shortness of breath, fever, chills, nausea, or vomiting. He states that he is feeling better overall. No new events noted overnight. OBJECTIVE: VITAL SIGNS: Temperature 96.9, pulse is 71, respirations 18, blood pressure 114/56, and pulse ox is 100% on 2 L of oxygen via nasal cannula. GENERAL: No acute distress. HEENT: Normocephalic, atraumatic. PERRLA. NECK: Supple and in midline. LUNGS: Clear to auscultation. CARDIOVASCULAR: Normal rate and rhythm. GI: Soft and tender, but seems to be enlarging. NEUROLOGICAL: Alert, awake, and oriented x3. MUSCULOSKELETAL: Active ROM with 2+ edema. SKIN: Grossly intact. Jaundiced. LABORATORY DATA: WBC 6.05, hemoglobin 8.9, hematocrit is 25.6, and platelet is 111. Sodium is 135, potassium 4.1, BUN is 98, creatinine is 6.72. AST is 70, ALT is 181. ASSESSMENT AND PLAN: 1. Acute kidney failure. Creatinine 6.7. HD catheter was placed and dialysis initiated per Nephrology, case management on setting outpatient dialysis. 2. Cirrhosis of unknown cause with large ascites, status post paracentesis. Hepatitis panel is negative. Denies use of alcohol. GI on the case for further workup. 3. Hypertension. Continue current medications. 4. Anemia of chronic disease. Hemoglobin is stable at 8.9. Monitor and transfuse if hemoglobin is less than 7. 5. Thrombocytopenia. No signs of bleeding noted, likely due to cirrhosis. 6. Gastroesophageal reflux disease. Continue Pepcid. 7. History of asthma, stable. Albuterol as needed. 8. Deep venous thrombosis prophylaxis. No chemical anticoagulation due to anemia. Dictated by GIL Mays Irene Santiago MD MY/MODL /[id number]
--- NOTE | 2019-08-26 18:59 | NUR ---
Report given to retail shift manager. patient lying in bed with eyes open. Family at bedside. Respiration even and unlabored without SOB. Call light in reach.
--- NOTE | 2019-08-26 19:00 | NUR ---
patient received awake, alert, lying quietly in bed. no c/o pain noted. pm assessment complete. family instructed to call for assistance when needed.
[2019-08-27] VITALS (8 sets, daily range): BP systolic 108–122; BP diastolic 56–65
--- NOTE | 2019-08-27 | NUR ---
patient appears to be resting quietly. no c/o pain noted at this time.
[2019-08-27 06:18] LABS: BASOPHILS % 0.5 % (0.0-1.0); EOSINOPHILS # (AUTO) 0.3 (0.0-0.4); EOSINOPHILS % 3.9 % (0.0-6.0); HEMATOCRIT 25.5 % (38.2-49.6); LYMPHOCYTES # (AUTO) 0.8 (1.0-3.2); LYMPHOCYTES % 12.7 % (18.0-39.1); MEAN CORPUSCULAR HEMOGLOBIN 33.6 pg (28-32); MEAN CORPUSCULAR HGB CONC 35.3 g/dL (31-35); MEAN CORPUSCULAR VOLUME 95.1 fL (81-99); MONOCYTES # (AUTO) 0.4 (0.2-0.8); MONOCYTES % 6.7 % (4.4-11.3); NEUTROPHILS # (AUTO) 4.9 (2.1-6.9); NEUTROPHILS % 75.6 % (38.7-80.0); PLATELET COUNT 95 x10e3/uL (140-360); RED BLOOD COUNT 2.68 x10e6/uL (4.3-5.7); RED CELL DISTRIBUTION WIDTH 18.7 % (11.7-14.4)
[2019-08-27 06:43] LABS: ANION GAP 16.3 mmol/L (8-16); CALCIUM 8.5 mg/dL (8.4-10.2); CREATININE, SERUM 5.78 mg/dL (0.72-1.25); POTASSIUM 4.3 mmol/L (3.5-5.1)
--- NOTE | 2019-08-27 07:05 | NUR ---
PATIENT IS AWAKE AND IN STABLE CONDITION WITH NO S/S OF RESPIRATORY DISTRESS. NO PAIN VOICED. GRISSOM INTACT AND DRAINING- URINE: DARK JAZMYNE/BROWN WITH SEDIMENTS NOTED. BED ALARM ON. CALL LIGHT IS WITHIN REACH, PATIENT INSTRUCTED TO CALL FOR ASSISTANCE NEEDED
[2019-08-27] MEDS: FAMOTIDINE 20 MG TAB PO SCH ×2 (08:27→15:58)
--- NOTE | 2019-08-27 10:49 | NUR ---
PATIENT STARTED DIALYSIS AT 1042- PATIENT IN STABLE CONDITION WITH NO S/S OF RESPIRATORY DISTRESS. NO PAIN VOICED.
--- NOTE | 2019-08-27 15:21 | NUR ---
PATIENT COMPLETED DIALYSIS 1 LITER REMOVED. GRISSOM REMOVED AT THIS TIME- URINAL PROVIDED TO THE PATIENT AND PATIENT IS AWARE NOT TO FLUSH THE TOILET IF HE DECIDES TO URINATE IN THE TOILET.
--- NOTE | 2019-08-27 15:58 | NUR ---
NEW TONNY HOSE APPLIED TO BILATERAL LOWER EXTREMITIES.
--- NOTE | 2019-08-27 17:41 | NUR ---
PATIENT URINATED AND HAD A BOWEL MOVEMENT.
--- NOTE | 2019-08-27 18:50 | Progress Note ---
DATE: 08/27/2019 CHIEF COMPLAINT: Generalized weakness and ascites. SUBJECTIVE: He is in bed with no acute distress. He denies any chest pain, shortness of breath, chills, fever, nausea, or vomiting. He wants the Bruce catheter out. No other complaints. LABORATORY DATA: WBC 6.46, hemoglobin is 9.0, hematocrit is 25.5, and platelet is 95. Sodium is 135, potassium is 4.3, creatinine is 5.78, BUN is70. GFR is 10. OBJECTIVE: VITAL SIGNS: Temperature is 96.6, pulse is 75, respirations 18, blood pressure 114/65, pulse ox is 96%. GENERAL: No acute distress. HEENT: Normocephalic and atraumatic. NECK: Supple and midline. LUNGS: Clear to auscultation. CARDIOVASCULAR: Normal rate and rhythm. GI: Soft and nontender. Seems to be getting distended. NEUROLOGIC: Alert, awake, oriented x3. MUSCULOSKELETAL: Active ROM. Edema improving. SKIN: Grossly intact. He is jaundiced. ASSESSMENT AND PLAN: 1. Acute kidney failure. Creatinine improving to 5.7. Continue dialysis per Nephrology. The patient's HD is being set up by case management. 2. Cirrhosis of unknown cause, likely genetics. All workup so far has been negative. Abdomen is getting distended, so we will order paracentesis for tomorrow. GI is also on the case for further workup. 3. Hypertension. Continue current medication. 4. Anemia of chronic disease. Hemoglobin is stable at 8. We will continue to monitor closely. 5. Thrombocytopenia. No signs of bleeding noted. We will continue to monitor. 6. Gastroesophageal reflux disease. We will continue with Pepcid. 7. History of asthma, is stable. Albuterol as needed. 8. Deep vein thrombosis prophylaxis. No chemical anticoagulation due to anemia. Dictated by GIL Mays Irene Santiago MD MY/MODL /[id number] Seen and examined on 08/27/2019. Agree with the findings and plan as documented by GIL Reina. MTDD
--- NOTE | 2019-08-27 19:00 | NUR ---
patient received awake, alert, lying quietly in bed. respirations even and unlabored. no c/o pain noted. pm assessment complete. family noted at the bedside. patient/family instructed to call for assistance when needed.
--- NOTE | 2019-08-27 19:08 | NUR ---
PATIENT IS IN STABLE CONDITION WITH NO S/S OF RESPIRATORY DISTRESS. NO PAIN VOICED. PRESENT IN ROOM. CALL LIGHT IS WITHIN REACH, PATIENT INSTRUCTED TO CALL FOR ASSISTANCE NEEDED. BEDSIDE REPORT GIVEN TO ONCOMING NURSE.
[2019-08-28] VITALS (7 sets, daily range): BP systolic 104–122; BP diastolic 55–59
--- NOTE | 2019-08-28 | NUR ---
patient appears to be resting quietly. no c/o pain noted. son remains at the bedside.
--- NOTE | 2019-08-28 06:00 | NUR ---
consent obtained for hemodialysis catheter placement today. consent placed on chart.
[2019-08-28 06:05] LABS: BASOPHILS # (AUTO) 0.1 (0.0-0.1); BASOPHILS % 0.7 % (0.0-1.0); EOSINOPHILS # (AUTO) 0.3 (0.0-0.4); EOSINOPHILS % 4.5 % (0.0-6.0); HEMATOCRIT 25.5 % (38.2-49.6); HEMOGLOBIN 8.8 g/dL (14.0-18.0); LYMPHOCYTES # (AUTO) 1.3 (1.0-3.2); LYMPHOCYTES % 17.2 % (18.0-39.1); MEAN CORPUSCULAR HGB CONC 34.5 g/dL (31-35); MEAN CORPUSCULAR VOLUME 95.5 fL (81-99); MONOCYTES # (AUTO) 0.6 (0.2-0.8); MONOCYTES % 7.8 % (4.4-11.3); NEUTROPHILS # (AUTO) 5.1 (2.1-6.9); NEUTROPHILS % 69.3 % (38.7-80.0); PLATELET COUNT 101 x10e3/uL (140-360); RED BLOOD COUNT 2.67 x10e6/uL (4.3-5.7); RED CELL DISTRIBUTION WIDTH 19.6 % (11.7-14.4)
[2019-08-28 06:38] LABS: ALBUMIN/GLOBULIN RATIO 0.5 (0.8-2.0); ANION GAP 15.8 mmol/L (8-16); CALCIUM 8.4 mg/dL (8.4-10.2); CREATININE, SERUM 4.62 mg/dL (0.72-1.25); POTASSIUM 3.8 mmol/L (3.5-5.1)
[2019-08-28 06:48] LABS: PLATELET ESTIMATE MARKEDLY DECREASED
[2019-08-28 06:49] LABS: PLATELET MORPHOLOGY COMMENT FEW LARGE; RBC MORPHOLOGY COMMENT NORMAL
--- NOTE | 2019-08-28 07:15 | NUR ---
The pt. is in bed and without apparent issues at shift change. The bed rails are up times two.
[2019-08-28] MEDS: FAMOTIDINE 20 MG TAB PO SCH ×2 (07:30→17:22)
[2019-08-28 07:40] LABS: INR 1.3; PROTHROMBIN TIME 16.8 seconds (11.9-14.5)
[2019-08-28 07:41] LABS: PARTIAL THROMBOPLASTIN TIME 40.6 seconds (23.8-35.5)
[2019-08-28] MEDS ORDERED: SODIUM CHLORIDE 0.9% 250ML 250 ML ONE (08:21)
[2019-08-28] MEDS ORDERED: LIDOCAINE HCL 1% LOCAL INJ 20 ML VIAL ONE (08:21)
[2019-08-28] MEDS ORDERED: CEFAZOLIN SOD 1 GM/NS 50ML 50 ML IV ONE (11:00)
[2019-08-28] MEDS ORDERED: MIDAZOLAM HCL 2 MG/2 ML VIAL ONE (11:53)
[2019-08-28] MEDS ORDERED: FENTANYL CITRATE/PF 100MCG/2 ML INJ ONE (11:53)
[2019-08-28] MEDS ORDERED: HEPARIN SOD (PORCINE) 1000 UNIT/ML 30ML ONE (11:59)
--- NOTE | 2019-08-28 15:10 | NUR ---
PT ACCEPTED TO [facility] [address] [facility] , [address] AT 555[address], PT WILL NEED TO BE AT FIRST VISIT ON SaturdayAUG 31 AT 520 PM FOR PAPERWORK. INFORMATION GIVEN TO NURSE AND PT AND FILED IN CHART.
--- NOTE | 2019-08-28 16:26 | Diagnostic Imaging Report ---
Tunneled dialysis catheter placement, 08/28/2019. History: Renal failure. Comparison: None available. Security Police Officer: Dr. Lopez. Medication: 5 cc of 1% lidocaine without epinephrine. Conscious sedation: 1.5 mg Versed, 75 mcg fentanyl IV. Physician intra-service sedation time: 20 minutes. EBL: < 2 cc. Fluoro time: 0.1 min. Fluoroscopy dose (DAP): 0.279 cGy-cm2. Specimen: None. Technique: After informed consent and timeout procedure, the access site was prepped and draped with the standard maximal sterile barrier technique. The skin was anesthetized with lidocaine. A 0.035-in. wire was advanced through the existing temporary right IJ dialysis catheter into the vein. The wire was advanced through the atrium into the IVC using fluoroscopic guidance. The old catheter was removed and a dilator was placed. The right chest was further anesthetized with lidocaine to form the subcutaneous tunnel. The catheter was advanced through the tunnel. The tract was dilated. A peel-away sheath was placed. A 14.5 Lao 19 cm HemoSplit catheter was placed into the vessel via the peel-away sheath, which was then removed. The catheter was secured with suture. The neck incision was closed with resorbable suture. Both ports demonstrated normal aspiration and flushing. Dressing was applied. The patient tolerated the procedure well without evidence of complication. Postprocedure image demonstrates the line to terminate in the superior right atrium. IMPRESSION: Successful tunneled dialysis catheter placement with fluoroscopic guidance guidance and conscious sedation. Catheter is ready for immediate use. Signed by: Jayant Lopez on 08/28/2019 4:23 PM
--- NOTE | 2019-08-28 17:44 | NUR ---
Dr. Santiago notified that the pt. has been set up with a chair for amaris;lysis on Saturday and that the pt. is receiving dialysis at this time. He will speak with the other dr's about discharge today or not.
--- NOTE | 2019-08-28 17:47 | NUR ---
Dr. Santiago returned the call and the pt. will dischargein the morning.
--- NOTE | 2019-08-28 19:47 | NUR ---
Recieved change of shift report from AM nurse. Walking rounds completed.
--- NOTE | 2019-08-29 | NUR ---
Patient completed dialysis. 2L taken off. Patiemt in no note stress.
[2019-08-29 01:13] VITALS: BP 109/59
--- NOTE | 2019-08-29 05:45 | NUR ---
Patient resting quitly at this time.
[2019-08-29 06:28] VITALS: BP 119/58
[2019-08-29 07:46] VITALS: BP 123/56
[2019-08-29] MEDS: FAMOTIDINE 20 MG TAB PO SCH (10:09)
[2019-08-29 10:17] VITALS: BP 123/56
[2019-08-29 11:43] VITALS: BP 111/56
--- NOTE | 2019-08-30 05:19 | Discharge Summary ---
PRIMARY CARE DOCTOR: Dr. Román George. FINAL DIAGNOSIS: Idiopathic cirrhosis with hepatorenal syndrome. SECONDARY DIAGNOSES: 1. Acute tubular necrosis, now dialysis dependent. 2. Thrombocytopenia. 3. Ascites. 4. Hypertension. 5. Anemia of chronic disease. 6. History of asthma. CONSULTANTS: 1. Dr. Olivia, GI. 2. Dr. Loredo, Nephrology. PROCEDURE/STUDIES PERFORMED: 1. Moe catheter placement and then removal. 2. Tunneled catheter placement. 3. Renal ultrasound. 4. Paracentesis. 5. Abdominal CT. HISTORY: Per H and P. HOSPITAL COURSE: The patient was admitted. CT shows cirrhosis and large amount of ascites, this was tapped and appears to be due to portal hypertension. Etiology for cirrhosis is unclear. The patient is not a drinker. His hepatitis panel was negative, EJ screen was negative, antimitochondrial antibody was negative. antismooth muscle antibodies were negative as well. Finally, dialysis was initiated. His chair time has been set up for Saturday, Saturday, and Saturday. Currently, his total bilirubin is 12. I have updated the patient's family about this hospitalization in details. Most likely, the patient should be referred to the medical Center for possible liver transplant. In the meantime, hopefully his renal function will recover on his own in a couple months, but that is not for sure either. The patient was seen and examined today. It took 35 minutes total to discharge this patient. CONDITION ON DISCHARGE: Improved. DISCHARGE MEDICATIONS: Please see medication reconciliation form. MD JACEK Wilkins/JAMA /[id number] cc: [facility]
== END 2019-08-29 14:34 | disposition home or self-care (01) | DRG 432 ==
LOC: ER 18:13 → ERHOLD 21:33 → MED/SURG3 22:38
PROVIDERS: ADMIT Internal Medicine; ATTEND Internal Medicine
PROC: 0W9G3ZZ Drainage of Peritoneal Cavity, Percutaneous Approach (ICD-10-PCS; principal; 2019-08-22)
PROC: 02HV33Z Insertion of Infusion Device into Superior Vena Cava, Percutaneous Approach (ICD-10-PCS; 2019-08-24)
PROC: 5A1D70Z Performance of Urinary Filtration, Intermittent, Less than 6 Hours Per Day (ICD-10-PCS; 2019-08-25)
PROC: 0JH63XZ Insertion of Tunneled Vascular Access Device into Chest Subcutaneous Tissue and Fascia, Percutaneous Approach (ICD-10-PCS; 2019-08-28)
PROC: 06H033Z Insertion of Infusion Device into Inferior Vena Cava, Percutaneous Approach (ICD-10-PCS; 2019-08-28)
DX: K74.60 Unspecified cirrhosis of liver (principal); K76.7 Hepatorenal syndrome; N18.6 End stage renal disease; N17.0 Acute kidney failure with tubular necrosis; I12.0 Hypertensive chronic kidney disease with stage 5 chronic kidney disease or end stage renal disease; R18.8 Other ascites; E87.1 Hypo-osmolality and hyponatremia; K76.6 Portal hypertension; D63.8 Anemia in other chronic diseases classified elsewhere; E87.5 Hyperkalemia; K21.9 Gastro-esophageal reflux disease without esophagitis; J45.909 Unspecified asthma, uncomplicated; D69.6 Thrombocytopenia, unspecified; K57.30 Diverticulosis of large intestine without perforation or abscess without bleeding; R53.81 Other malaise
CPT/HCPCS: 36415; 36556; 36558; 49083; 51700; 71045; 74176; 74470; 76770; 76937; 77001; 80048; 80053; 80076; 81001; 82040; 82105; 82150; 82550; 82553; 82570; 82948; 83690; 84156; 84300; 84443; 84484; 85025; 85610; 85730; 86039; 86255; 86803; 86850; 86900; 87086; 87340; 88112; 88305; 89051; 90962; 93005; 99284; C1729; C1769; J0690; J1644; J2001; J2150; J2250; J2270; J2405; J3010; J7030; J7050; P9045; P9047